=== PATIENT | female | born 1980 | race Caucasian/White ===

== ENCOUNTER 2017-09-17 15:53 | Inpatient (IN) | payer OTHER ==
[~2017-09-17] VITALS: Ht 170.2 cm; Wt 57.2 kg
--- NOTE | 2017-09-17 16:00 | NUR ---
PATEINT WAS SEEN AND EVAL BY DR CORNEJO ROOM 04B.
[2017-09-17] MEDS ORDERED: IV NORMAL SALINE 1000 ML BAG IV ONE (16:15)
--- NOTE | 2017-09-17 16:25 | NUR ---
ADMITTED FROM HOME A 37 YO FEMALE WITH CC OF PALPITATION X2 DAYS, DX ARRYTHMIA. ROUTINE ADMISSION ASSESSMENT INITIATED. DR JEFFERS NOTIFIED OF ADMISSION AWAITING CALL BACK Addendum: 09/17/17 at 1857 by RULA ALLEN RN ARRIVED ON SECOND FLOOR AT 1800
[2017-09-17 16:26] LABS: EOSINOPHILS % (AUTO) 0.1 % (0.0-7.0); HEMOGLOBIN 14.6 g/dL (10.9-14.3); MONOCYTES # (AUTO) 0.4 K/uL (2.0-10.0); NEUTROPHILS # (AUTO) 4.2 K/uL (1.8-8.9); WHITE BLOOD COUNT (AUTO) 5.6 K/uL (3.8-11.8)
[2017-09-17 16:29] LABS: BASOPHILS % (AUTO) 0.3 % (0.0-2.0); HEMATOCRIT 40.9 % (31.2-41.9); LYMPHOCYTES % (AUTO) 17.9 % (20.5-51.5); MEAN CORPUSCULAR HGB CONC 36 g/dL (32.3-35.6); MEAN CORPUSCULAR VOLUME 92.4 fL (75.5-95.3); MONOCYTES % (AUTO) 7.2 % (0.0-11.0); NEUTROPHILS % (AUTO) 74.5 % (38.5-71.5); PLATELET COUNT (AUTO) 264 K/uL (179-408); RED BLOOD CELL COUNT(AUTO) 4.42 MIL/uL (3.63-4.92)
[2017-09-17 16:30] LABS: CREATININE 0.8 mg/dL (0.6-1.3)
[2017-09-17 16:35] LABS: BILIRUBIN,DIRECT 0.1 mg/dL (0.0-0.2); BILIRUBIN,TOTAL 0.5 mg/dL (0.2-1.0); TOTAL PROTEIN, SERUM 8.3 g/dL (6.4-8.2)
[2017-09-17 16:57] LABS: *URINE HCG, QUAL NEGATIVE (NEGATIVE)
[2017-09-17] MEDS ORDERED: ASPIRIN 81 MG TAB.CHEW PO ONE (17:45)
--- NOTE | 2017-09-17 17:56 | NUR ---
TRANSFERED PT TO FLOOR IN STABLE CONDITION.
[2017-09-17] MEDS ORDERED: ASPIRIN 81 MG TAB.CHEW ONE (18:06)
[2017-09-17 18:20] VITALS: BP 139/93
--- NOTE | 2017-09-17 19:30 | NUR ---
RECEIVED PT IN BED, IN NO ACUTE SIGN OF DISTRESS. REPORT GIVEN BY PREVIOUS NURSE, POSSIBLE DISCHARGE / TRANSFER.
[2017-09-17 20:00] VITALS: BP 146/94
[2017-09-17] MEDS ORDERED: LORAZEPAM 2 MG/1 ML VIAL IV ONE (22:30)
[2017-09-17] MEDS ORDERED: LORAZEPAM 2 MG/1 ML VIAL ONE (22:41)
[2017-09-17 23:20] VITALS: BP 134/91
--- NOTE | 2017-09-18 | NUR ---
PT WAS DISCHARGED HOME ORDERED, STABLE IN CONDITION. PT WAS SEEN BY DR. DAVILA EARLIER. DISCHARGE INSTRUCTIONS WERE GIVEN, VERBALIZED UNDERSTANDING. COPIES GIVEN. IV SITE WAS DISCONTINUED. PT WAS ACCOMPANIED BY BOYFRIEND.
== END 2017-09-18 00:02 | disposition home or self-care (01) | DRG 756 ==
LOC: ER 15:54 → TELE 17:48
PROVIDERS: ADMIT Internal Medicine; ATTEND Internal Medicine
DX: F41.9 Anxiety disorder, unspecified (principal); I45.6 Pre-excitation syndrome; R94.31 Abnormal electrocardiogram [ECG] [EKG]
CPT/HCPCS: 36415; 70030-TC; 71045; 84703; 85025; 85730; 93005; 93307; A4663; J2060; J7030